=== PATIENT | female | born 1990 | race Caucasian/White ===

== ENCOUNTER 2017-07-14 16:40 | Inpatient (IN) | payer OTHER ==
[~2017-07-14] VITALS: Ht 167.6 cm; Wt 78.5 kg
[2017-07-14] MEDS ORDERED: FERR325E14 PO (17:18)
[2017-07-14] MEDS ORDERED: PREN-556 PO (17:18)
[2017-07-14 17:21] VITALS: BP 127/85
[2017-07-14] MEDS ORDERED: LACTATED RINGERS 1,000 ML IV SCH (17:40)
[2017-07-14 18:22] LABS: APPEARANCE,URINE CLEAR (CLEAR); BILIRUBIN,URINE NEGATIVE (NEGATIVE); BLOOD, URINE NEGATIVE (NEGATIVE); COLOR,URINE YELLOW (YELLOW); LEUKOCYTE ESTERASE ,URINE 1+ (NEGATIVE); NITRITE, URINE NEGATIVE (NEGATIVE); PH,URINE 6.5 (5.0-9.0); UGLUCOSE NEGATIVE (NEGATIVE)
[2017-07-14 18:27] LABS: BASOPHILS # (AUTO) 0.1 K/uL (0.00-0.22); BASOPHILS % (AUTO) 0.9 % (0.0-2.0); EOSINOPHILS # (AUTO) 0.1 K/uL (0-0.4); EOSINOPHILS % (AUTO) 0.9 % (0.0-4.0); HEMATOCRIT 40.6 % (36-48); HEMOGLOBIN 13.4 g/dL (12.0-16.0); LYMPHOCYTES # (AUTO) 1.9 K/uL (2.5-16.5); LYMPHOCYTES % (AUTO) 19.6 % (20.5-51.1); MEAN CORPUSCULAR HEMOGLOBIN 29 pg (27-31); MEAN CORPUSCULAR HGB CONC 33 g/dL (33-37); MEAN CORPUSCULAR VOLUME 88 fL (80-94); MONOCYTES # (AUTO) 0.4 K/uL (0.8-1.0); MONOCYTES % (AUTO) 4.3 % (1.7-9.3); NEUTROPHILS # (AUTO) 7.2 K/uL (1.8-7.7); NEUTROPHILS % (AUTO) 74.3 % (42.2-75.2); PLATELET COUNT (AUTO) 196 K/uL (140-450); RED BLOOD CELL COUNT(AUTO) 4.63 MIL/uL (4.20-5.40); RED CELL DISTRIBUTION WIDTH 12.8 % (11.6-13.7); WHITE BLOOD COUNT (AUTO) 9.7 K/uL (4.8-10.8)
[2017-07-14 18:27] LABS: RBC,URINE 0-5 (RARE) /HPF (0-5); WBC,URINE 6-15 (FEW) /HPF (0-5)
[2017-07-14 18:29] LABS: ALBUMIN 3.1 g/dL (3.4-5.0); ANION GAP 13.9 (8-16); CARBON DIOXIDE 25.7 mmol/L (21-32); CREATININE 0.6 mg/dL (0.6-1.3); POTASSIUM 4.6 mmol/L (3.5-5.1); TOTAL BILIRUBIN 0.3 mg/dL (0.0-1.0)
[2017-07-14 18:35] LABS: PROTHROMBIN TIME 9.9 secs (10.8-13.4)
[2017-07-14] MEDS ORDERED: MISOPROSTOL 100 MCG TAB VG SCH (20:11)
[2017-07-14] MEDS ORDERED: MISOPROSTOL 200 MCG TAB ONE (20:14)
[2017-07-14 20:39] VITALS: BP 126/87
[2017-07-15] MEDS ORDERED: MISOPROSTOL 200 MCG TAB ONE (00:04)
[2017-07-15] MEDS ORDERED: PROMETHAZINE 25 MG/ML VIAL ONE (00:04)
[2017-07-15] MEDS ORDERED: NALBUPHINE HYDROCHLORIDE 10 MG/ML VIAL ONE ×2 (00:04→01:04)
[2017-07-15] MEDS ORDERED: OXYTOCIN 20 UNITS/LR PREMIX 1,000 ML IV ONE (00:14)
[2017-07-15] MEDS ORDERED: OXYTOCIN 20 UNITS in LACTATED RINGERS 1,000 ML IV SCH (00:35)
[2017-07-15] MEDS ORDERED: OXYTOCIN 10 UNITS/ML VIAL IM ONE (00:35)
[2017-07-15] MEDS ORDERED: NALBUPHINE 10 MG/ML AMP IVP PRN (00:35)
[2017-07-15] MEDS ORDERED: PROMETHAZINE 25 MG/ML VIAL IVP PRN (00:35)
[2017-07-15] MEDS ORDERED: OXYTOCIN 10 UNITS/ML VIAL ONE (01:17)
[2017-07-15] MEDS: NALBUPHINE 10 MG/ML AMP IVP PRN ×2 (01:35→01:36)
[2017-07-15] MEDS ORDERED: BENZOCAINE/MENTHOL 20%-0.5% 60 GM CAN TP PRN (04:05)
[2017-07-15] MEDS ORDERED: oxyCODONE/APAP 5/325 MG 1 TAB TAB PO PRN (04:05)
[2017-07-15] MEDS ORDERED: MEASLES, MUMPS, AND RUBELLA 1 VIAL SQVAC PRN (04:05)
[2017-07-15] MEDS ORDERED: OXYTOCIN 10 UNITS/ML VIAL IM PRN (04:05)
[2017-07-15] MEDS ORDERED: HYDROcodone/APAP 5/325 MG 1 TAB TAB PO PRN (04:05)
[2017-07-15] MEDS ORDERED: METHYLERGONOVINE 0.2 MG/ML AMP IM PRN (04:05)
[2017-07-15] MEDS ORDERED: TEMAZEPAM 15 MG CAP PO PRN (04:05)
[2017-07-15] MEDS ORDERED: IBUPROFEN 800 MG TAB PO PRN (04:05)
[2017-07-15] MEDS ORDERED: HYDROcodone/APAP 5/325 MG 1 TAB TAB ONE (04:28)
--- NOTE | 2017-07-15 08:42 | NUR ---
PATIENT HAS BEEN SCREENED AND CATEGORIZED LOW NUTRITION RISK. PATIENT WILL BE SEEN WITHIN 7 DAYS OF ADMISSION. 07/21/[address]
[2017-07-15] MEDS ORDERED: IBUP-1842 PO (11:28)
--- NOTE | 2017-07-15 12:25 | NUR ---
Wheat Cleaner met with Patient, boyfriend Tobi Mcgovern and mother Gilda Mcdowell. During visit Mother and Patient were upset and crying stating feeling depressed about the recent loss of the new born on 07/15/17. Patient expressed her concerns about returning home to her 3 year girl that is expecting a new baby at home, and she not been able or knowing how to explained the loss of her baby at . Wheat Cleaner listen, crisis intervention counselor and provided patient and family with support. Wheat Cleaner provided and educated patient and family about stages of grieving process and give them information about dealing with depression. Wheat Cleaner also provided Pt. and family with a referral to Individual and Family Therapy at [facility] and additional referrals to bereavement support groups. Family was pleased with information and support. Patient stated wanting to go home today with her family and that Mother will be assisting her with transportation, support and follow up care after discharge. Patient reported been able to make her own appointments for follow up care and therapy and had no more questions or concerns at the time of visit. Wheat Cleaner dismiss from visit and will follow up as needed.
--- NOTE | 2017-07-15 13:58 | NUR ---
CM NOTE PER [facility] JANUARY PH# [phone], FAX REVIEW TO [facility]. INITIAL REVIEW FAXED TO [facility] [phone] JANUARY [phone].
[2017-07-15] MEDS ORDERED: DOCUSATE SOD/SENNA 50/8.6 MG 1 TAB PO SCH (21:00)
== END 2017-07-15 13:15 | disposition home or self-care (01) | DRG 560 ==
LOC: MLD 16:40 → OBSVTOIN 17:38 → MFCC 07-15 05:20
PROVIDERS: ADMIT Obstetrics & Gynecology; ATTEND Obstetrics & Gynecology
PROC: 10E0XZZ Delivery of Products of Conception, External Approach (ICD-10-PCS; principal; 2017-07-15)
PROC: 3E0P7VZ Introduction of Hormone into Female Reproductive, Via Natural or Artificial Opening (ICD-10-PCS; 2017-07-15)
DX: O69.89X0 Labor and delivery complicated by other cord complications, not applicable or unspecified (principal); O36.4XX0 Maternal care for intrauterine death, not applicable or unspecified; O09.293 Supervision of pregnancy with other poor reproductive or obstetric history, third trimester; Z37.1 Single stillbirth; O77.0 Labor and delivery complicated by meconium in amniotic fluid; Z3A.35 35 weeks gestation of pregnancy; Z80.0 Family history of malignant neoplasm of digestive organs; Z80.8 Family history of malignant neoplasm of other organs or systems
CPT/HCPCS: 36415; 59200; 59409; 76805; 80053; 81001; 85025; 85379; 85384; 85610; 85730; 86592; 86886; 86900; 86901; 87086; 88307; G0378; J2300; J2550; J2590; J7120